=== PATIENT | female | born 1955 | race Caucasian/White ===

== ENCOUNTER 2024-04-18 09:39 | Outpatient (CLI) | payer MEDICAID, MEDICARE | END 2024-04-18 09:40 | disposition home or self-care (01) | LOC: BICULT 09:39 | PROVIDERS: ATTEND Family Medicine | DX: E04.9 Nontoxic goiter, unspecified (principal); Z11.59 Encounter for screening for other viral diseases; D64.9 Anemia, unspecified | CPT/HCPCS: 36415; 76536; 82728; 83540; 83550; 85025; 86803 ==

== ENCOUNTER 2024-05-13 09:14 | Outpatient (CLI) | payer MEDICARE | END 2024-05-13 09:15 | disposition home or self-care (01) | LOC: CT 09:14 | PROVIDERS: ATTEND Family Medicine | DX: Z12.2 Encounter for screening for malignant neoplasm of respiratory organs (principal); R20.2 Paresthesia of skin; M50.31 Other cervical disc degeneration, high cervical region; M50.321 Other cervical disc degeneration at C4-C5 level; M50.322 Other cervical disc degeneration at C5-C6 level; M50.323 Other cervical disc degeneration at C6-C7 level; G95.29 Other cord compression; I67.89 Other cerebrovascular disease; Z87.891 Personal history of nicotine dependence | CPT/HCPCS: 36415; 70551; 71271; 72141; 82565 ==

== ENCOUNTER 2024-05-27 14:45 | Outpatient (CLI) | payer MEDICARE | END 2024-05-27 14:46 | disposition home or self-care (01) | LOC: BICMAMMO 14:45 | PROVIDERS: ATTEND Family Medicine | DX: Z12.31 Encounter for screening mammogram for malignant neoplasm of breast (principal) | CPT/HCPCS: 77063; 77067 ==

== ENCOUNTER 2025-01-27 12:07 | Inpatient (IN) | payer MEDICARE ==
[~2025-01-27 12:07] MED LIST: Iopamidol-370 76% 500 ML MDV (1 ML CHARGE) ONE
[2025-01-27 12:51] LABS: #Basophils 0.04 10x3/uL (0.0-0.2); #Eosinophils Less than 0.03 10x3/uL (0.0-0.7); #Monocytes 0.99 10x3/uL (0.11-0.59); #Neutrophils 8.22 10x3/uL (1.40-6.50); %Basophils 0.3 % (0.0-1.0); %Eosinophils 0.1 % (0.0-10.0); %Lymphocytes 19.4 % (21.0-51.0); %Monocytes 8.6 % (0.0-10.0); %Neutrophils 71.3 % (42.0-75.0); Hematocrit 49.1 % (36.0-47.0); Hemoglobin 16.6 g/dL (12.0-16.0); Mean Corpuscular Hemoglobin 32.1 pg (27.0-31.0); Mean Corpuscular Volume 95.0 fL (78.0-98.0); Platelet Count 222 10x3/uL (130-400); Red Blood Cell (RBC) Count 5.17 mill/uL (4.20-5.40); White Blood Cell (WBC) Count 11.54 10x3/uL (4.8-10.8)
[2025-01-27 13:01] LABS: ALT (SGPT) 24 U/L (Less than 34); AST (SGOT) 44 U/L (11-34); Albumin 4.1 g/dL (3.1-4.5); Alkaline Phosphatase 92 U/L (40-110); Anion Gap 21 mmol/L (10-20); BUN (Urea Nitrogen) Less than 4 mg/dL (9.8-20.1); Bilirubin, Total 0.5 mg/dL (0.3-1.2); Calc. Creatinine Clearance 0 mL/min (70-130); Calcium 9.5 mg/dL (7.8-10.44); Carbon Dioxide 18 mmol/L (23-31); Chloride 105 mmol/L (98-107); Globulin 4.0 g/dL (2.4-3.5); Glucose 90 mg/dL (80-115); Magnesium 1.8 mg/dL (1.6-2.6); Potassium 3.7 mmol/L (3.5-5.1); Sodium 140 mmol/L (136-145)
[2025-01-27 13:04] LABS: Troponin I 0.016 ng/mL (< 0.028)
[2025-01-27] MEDS ORDERED: diphenhydrAMINE 50 MG/ML VIAL ONE (13:29)
[2025-01-27] MEDS ORDERED: Famotidine/PF 20 mg/2ml Vial ONE (13:30)
[2025-01-27] MEDS ORDERED: cloNIDine 0.1 MG TAB ONE (15:39)
[2025-01-27 16:01] LABS: Bacteria/HPF None Seen HPF (None Seen); CAUTI Indications for Culture Dysuria,urgency,freq; Glucose, Urine (Dipstick) Normal (Negative); Leukocyte Negative Leu/uL (Negative); Protein, Urine (Dipstick) Negative (Neg-Trace); RBC/HPF 0-3 HPF (0-3); Specific Gravity, Urine 1.030 (1.002-1.036); WBC/HPF 0-3 HPF (0-3)
[2025-01-27 16:03] LABS: Urine Culture Reflex No No
[2025-01-27] MEDS ORDERED: Ondansetron PF 4 MG/2 ML Vial IVP PRN (17:03)
[2025-01-27] MEDS: Famotidine/PF 20 mg/2ml Vial SLOW IVP SCH (23:07)
[2025-01-27 23:17] VITALS: BMI 18.2
[2025-01-28 04:07] LABS: #Basophils Less than 0.03 10x3/uL (0.0-0.2); #Eosinophils Less than 0.03 10x3/uL (0.0-0.7); #Monocytes 0.53 10x3/uL (0.11-0.59); #Neutrophils 5.19 10x3/uL (1.40-6.50); %Basophils 0.1 % (0.0-1.0); %Eosinophils 0.0 % (0.0-10.0); %Lymphocytes 16.1 % (21.0-51.0); %Monocytes 7.7 % (0.0-10.0); %Neutrophils 75.5 % (42.0-75.0); Hematocrit 46.5 % (36.0-47.0); Hemoglobin 15.0 g/dL (12.0-16.0); Mean Corpuscular Hemoglobin 32.0 pg (27.0-31.0); Mean Corpuscular Volume 99.1 fL (78.0-98.0); Platelet Count 208 10x3/uL (130-400); Red Blood Cell (RBC) Count 4.69 mill/uL (4.20-5.40); White Blood Cell (WBC) Count 6.88 10x3/uL (4.8-10.8)
[2025-01-28 04:26] LABS: Anion Gap 13 mmol/L (10-20); BUN (Urea Nitrogen) 6 mg/dL (9.8-20.1); Calc. Creatinine Clearance 81 mL/min (70-130); Calcium 9.1 mg/dL (7.8-10.44); Carbon Dioxide 21 mmol/L (23-31); Cardiac Risk 3.2 (Less than 4.5); Chloride 108 mmol/L (98-107); Cholesterol 172 mg/dl (< 200 Desired); Glucose 125 mg/dL (80-115); HDL Cholesterol 53 mg/dL (>60 Neg Risk); LDL Cholesterol, Calculated 101 mg/dL; Potassium 3.3 mmol/L (3.5-5.1); Sodium 139 mmol/L (136-145); Triglycerides 92 mg/dL (Less than 150)
[2025-01-28] MEDS: Aspirin 81 mg Enteric Coated Tablet PO SCH (08:48)
[2025-01-28] MEDS: Thiamine 100 MG TAB PO SCH (08:49)
[2025-01-28] MEDS: Gabapentin 100 MG CAP PO SCH (08:49)
[2025-01-28] MEDS: Folic Acid 1 MG TAB PO SCH (08:49)
[2025-01-28] MEDS: Enoxaparin 40 MG (0.4 mL) SYRINGE SC SCH (08:50)
[2025-01-28] MEDS: Acetaminophen 325 MG TAB PO PRN (13:39)
[2025-01-28 15:28] VITALS: BMI 18.2
[2025-01-28] MEDS: hydrALAZINE 20 MG/ML VIAL SLOW IVP PRN (20:48)
[2025-01-29] MEDS: Melatonin 3 MG TAB PO PRN (01:02)
[2025-01-29 04:00] LABS: #Basophils Less than 0.03 10x3/uL (0.0-0.2); #Eosinophils Less than 0.03 10x3/uL (0.0-0.7); #Monocytes 0.10 10x3/uL (0.11-0.59); #Neutrophils 7.38 10x3/uL (1.40-6.50); %Basophils 0.1 % (0.0-1.0); %Eosinophils 0.0 % (0.0-10.0); %Lymphocytes 8.2 % (21.0-51.0); %Monocytes 1.2 % (0.0-10.0); %Neutrophils 90.3 % (42.0-75.0); Hematocrit 48.1 % (36.0-47.0); Hemoglobin 15.4 g/dL (12.0-16.0); Mean Corpuscular Hemoglobin 31.9 pg (27.0-31.0); Mean Corpuscular Volume 99.6 fL (78.0-98.0); Platelet Count 203 10x3/uL (130-400); Red Blood Cell (RBC) Count 4.83 mill/uL (4.20-5.40); White Blood Cell (WBC) Count 8.18 10x3/uL (4.8-10.8)
[2025-01-29 04:15] LABS: Anion Gap 13 mmol/L (10-20); BUN (Urea Nitrogen) 7 mg/dL (9.8-20.1); Calc. Creatinine Clearance 92 mL/min (70-130); Calcium 8.9 mg/dL (7.8-10.44); Carbon Dioxide 20 mmol/L (23-31); Chloride 109 mmol/L (98-107); Glucose 143 mg/dL (80-115); Potassium 4.1 mmol/L (3.5-5.1); Sodium 138 mmol/L (136-145)
[2025-01-29] MEDS: diphenhydrAMINE 50 MG/ML VIAL IVP SCH (10:57)
[2025-01-30] MEDS: cloNIDine 0.1 MG TAB PO SCH (09:45)
[2025-01-30] MEDS ORDERED: hydrALAZINE 20 MG/ML VIAL SLOW IVP PRN (09:50)
[2025-02-01 13:42] LABS: #Basophils 0.03 10x3/uL (0.0-0.2); #Eosinophils 0.11 10x3/uL (0.0-0.7); #Monocytes 0.91 10x3/uL (0.11-0.59); #Neutrophils 4.81 10x3/uL (1.40-6.50); %Basophils 0.4 % (0.0-1.0); %Eosinophils 1.5 % (0.0-10.0); %Lymphocytes 22.5 % (21.0-51.0); %Monocytes 12.0 % (0.0-10.0); %Neutrophils 63.5 % (42.0-75.0); Hematocrit 46.6 % (36.0-47.0); Hemoglobin 14.9 g/dL (12.0-16.0); Mean Corpuscular Hemoglobin 32.2 pg (27.0-31.0); Mean Corpuscular Volume 100.6 fL (78.0-98.0); Platelet Count 173 10x3/uL (130-400); Red Blood Cell (RBC) Count 4.63 mill/uL (4.20-5.40); White Blood Cell (WBC) Count 7.57 10x3/uL (4.8-10.8)
[2025-02-01 14:01] LABS: Anion Gap 16 mmol/L (10-20); BUN (Urea Nitrogen) 6 mg/dL (9.8-20.1); Calc. Creatinine Clearance 106 mL/min (70-130); Calcium 8.3 mg/dL (7.8-10.44); Carbon Dioxide 22 mmol/L (23-31); Chloride 105 mmol/L (98-107); Glucose 100 mg/dL (80-115); Potassium 3.6 mmol/L (3.5-5.1); Sodium 139 mmol/L (136-145)
[2025-02-02 04:01] LABS: #Basophils 0.03 10x3/uL (0.0-0.2); #Eosinophils 0.15 10x3/uL (0.0-0.7); #Monocytes 0.97 10x3/uL (0.11-0.59); #Neutrophils 4.98 10x3/uL (1.40-6.50); %Basophils 0.4 % (0.0-1.0); %Eosinophils 1.9 % (0.0-10.0); %Lymphocytes 21.1 % (21.0-51.0); %Monocytes 12.5 % (0.0-10.0); %Neutrophils 64.0 % (42.0-75.0); Hematocrit 48.2 % (36.0-47.0); Hemoglobin 15.5 g/dL (12.0-16.0); Mean Corpuscular Hemoglobin 32.1 pg (27.0-31.0); Mean Corpuscular Volume 99.8 fL (78.0-98.0); Platelet Count 171 10x3/uL (130-400); Red Blood Cell (RBC) Count 4.83 mill/uL (4.20-5.40); White Blood Cell (WBC) Count 7.78 10x3/uL (4.8-10.8)
[2025-02-02 04:36] LABS: Anion Gap 15 mmol/L (10-20); BUN (Urea Nitrogen) 9 mg/dL (9.8-20.1); Calc. Creatinine Clearance 101 mL/min (70-130); Calcium 8.6 mg/dL (7.8-10.44); Carbon Dioxide 22 mmol/L (23-31); Chloride 107 mmol/L (98-107); Glucose 99 mg/dL (80-115); Potassium 3.8 mmol/L (3.5-5.1); Sodium 140 mmol/L (136-145)
[2025-02-02] MEDS: Multivit, Therapeutic 1 TAB PO SCH (09:55)
[2025-02-03 11:40] VITALS: BP 155/89
[2025-02-03 15:50] VITALS: TEMP 98
== END 2025-02-03 17:40 | DRG 947 ==
LOC: ERS 12:07 → 2SE 17:06 → OBSVTOIN 01-28 14:05
PROVIDERS: ADMIT Hospitalist; ATTEND Internal Medicine
DX: R53.1 Weakness (principal); G92.9 Unspecified toxic encephalopathy; G45.9 Transient cerebral ischemic attack, unspecified; F41.9 Anxiety disorder, unspecified; K58.9 Irritable bowel syndrome, unspecified; B02.9 Zoster without complications; F17.210 Nicotine dependence, cigarettes, uncomplicated; I10 Essential (primary) hypertension; R00.0 Tachycardia, unspecified; E03.9 Hypothyroidism, unspecified; F10.10 Alcohol abuse, uncomplicated; E87.6 Hypokalemia; Z88.0 Allergy status to penicillin; Z88.8 Allergy status to other drugs, medicaments and biological substances; Z91.041 Radiographic dye allergy status; Z90.710 Acquired absence of both cervix and uterus; Z79.899 Other long term (current) drug therapy
CPT/HCPCS: 36415; 36416; 70450; 70496; 70498; 70551; 71045; 71275; 72141; 72146; 72148; 74230; 80048; 80053; 80061; 81001; 83605; 83735; 83880; 84443; 84484; 85025; 85379; 87040; 87086; 93005; 93010; 93306; 93970; 96374; 96375; 96376; G0378; J0360; J1200; J1308; J1650; J2060; J2919; J7512; Q9967